=== PATIENT | female | born 1965 | race Caucasian/White ===

== ENCOUNTER → 2016-12-13 | Outpatient (CLI) | payer OTHER | LOC: FIMAGING 12:04 | DX: Z12.31 Encounter for screening mammogram for malignant neoplasm of breast (principal) | CPT/HCPCS: G0202 ==

== ENCOUNTER 2017-01-20 11:45 | Emergency (ER) | payer OTHER ==
[2017-01-20 11:57] VITALS: RESP 16; TEMP 97.7
--- NOTE | 2017-01-20 13:03 | EDPHY ---
H & P Time Seen by Provider: 01/20/17 12:44 HPI/ROS: CHIEF COMPLAINT: Rash after starting Vimpat HISTORY OF PRESENT ILLNESS: 51-year-old female history of seizure disorder started on Vimpat 6 days ago states that 3 days after taking medication she developed a painful rash which has progressed and followed dermatomal distribution on her abdomen. No fever no chills. No nausea or vomiting. No headache. No nuchal rigidity. No genitalia lesions. No ocular irritation. No GI or complaints. No intraoral lesions. PRIMARY CARE PROVIDER:Dr. Sonia Lopez REVIEW OF SYSTEMS: A ten point review of systems was performed and is negative with the exception of the items mentioned in the HPI PAST MEDICAL & SURGICAL HISTORY: Seizure disorder SOCIAL HISTORY: Nonsmoker PHYSICAL EXAM (Prior to examination, patient consented to physical exam, hands were washed and my usual and customary physical exam procedures followed) 1) GENERAL: Well-developed, well-nourished, alert and oriented. Appears to be in no acute distress. 2) HEAD: Normocephalic, atraumatic 3) HEENT: Pupils equal, round, reactive to light bilaterally. No injection. Nasopharynx, oropharynx, clear, no lesions. Ears bilaterally with normal tympanic membranes. 4) NECK: Full range of motion, no meningeal signs. 5) LUNGS: Clear auscultation bilaterally, no wheezes, no rhonchi, no retractions. 6) HEART: Regular rate and rhythm, no murmur, no heave, no gallop. 7) ABDOMEN: on the left upper quadrant of the abdomen, following a dermatomal distribution, not crossing the midline, patient has a vesicular lesion consistent with zoster. No guarding, no rebound, no focal tenderness, negative McBurney's, negative Griffith's, negative Rovsing's, negative peritoneal sign, 8) MUSCULOSKELETAL: Moving all extremities, no focal areas of tenderness, no obvious trauma. No peripheral edema or discoloration. 9) BACK: no midline vertebral tenderness,.] 10) SKIN: No rash, no petechiae. 11) Psychiatric: Patient is oriented X 3, there is no agitation. DIFFERENTIAL DIAGNOSIS: in no particular include but limited to zoster, Daly-Tank syndrome, toxic epidermal necrolysis . Smoking Status: Never smoked Constitutional: Initial Vital Signs Temperature (C) 36.5 C 01/20/17 11:55 Heart Rate 54 L 01/20/17 11:55 Respiratory Rate 16 01/20/17 11:55 Blood Pressure 109/66 01/20/17 11:55 O2 Sat (%) 98 01/20/17 11:55 O2 Delivery Mode Room Air Allergies/Adverse Reactions: levetiracetam [From Keppra] Allergy (Severe, Verified 01/20/17 11:58) increased sz carbamazepine [From Tegretol] Allergy (Intermediate, Verified 01/20/17 11:58) Hives lamotrigine Allergy (Mild, Verified 01/20/17 11:58) Rash amoxicillin Allergy (Unknown, Verified 01/20/17 11:57) as child Sulfa (Sulfonamide Antibiotics) Allergy (Unknown, Verified 01/20/17 11:57) as child Home Medications: Medication Instructions Recorded Cetirizine [ZyrTEC 10 mg (*)] 01/20/17 Lacosamide [Vimpat 50 mg (*)] 50 mg PO 01/20/17 Valacyclovir HCl [Valtrex] 1,000 mg PO TID #21 tab 01/20/17 MDM/Departure - MDM ED Course/Re-evaluation: I think this patient's symptoms are more likely secondary to zoster. Doubt Daly-Tank. Will start patient on antiviral therapy. I provided my usual customary zoster precautions and instructions. Doubt meningitis. - Depart Disposition: Home, Routine, Self-Care Clinical Impression: Zoster Qualifiers: Herpes zoster complications: without complications Qualified Code(s): B02.9 - Zoster without complications Condition: Good Instructions: Shingles (ED) Additional Instructions: Return to the ER if you develop new or worsening symptoms, if you develop lesions / bumps in mouth, genitalia, nausea, vomiting or any other symptoms that concern you. Prescriptions: Valacyclovir HCl [Valtrex] 1,000 mg PO TID #21 tab Referrals: Sonia Lopez MD [Primary Care Provider] - 1-2 days without fail
[2017-01-20 13:15] VITALS: BP 112/60; PULSE 75; O2SAT 95
== END 2017-01-20 13:15 | disposition home or self-care (01) ==
DX: B02.9 Zoster without complications (principal)

== ENCOUNTER → 2017-12-15 | Outpatient (CLI) | payer OTHER | LOC: FIMAGING 10:50 | PROVIDERS: ATTEND Internal Medicine | DX: Z12.31 Encounter for screening mammogram for malignant neoplasm of breast (principal) ==

== ENCOUNTER → 2018-12-27 | Outpatient (CLI) | payer OTHER | LOC: FIMAGING 11:47 | PROVIDERS: ATTEND Internal Medicine | DX: Z12.31 Encounter for screening mammogram for malignant neoplasm of breast (principal) ==